=== PATIENT | female | born 1960 | race Caucasian/White ===

== ENCOUNTER 2018-09-04 05:46 | Observation (INO) ==
[2018-09-04] MEDS ORDERED: Ketorolac Inj 30 MG/ML (IVP) Vial IV.PUSH ONE (06:08)
[2018-09-04 06:28] LABS: Baso # (Auto) 0.1 th/mm3 (0.0-0.2); Baso % (Auto) 1.3 % (0.0-2.0); Eos # (Auto) 0.6 th/mm3 (0.0-0.4); Eos % (Auto) 10.8 % (0.0-4.0); Hematocrit 43.7 % (35.0-46.0); Hemoglobin 14.7 gm/dL (11.6-15.3); Lymph % (Auto) 33.8 % (9.0-44.0); Mean Corpuscular HGB Conc 33.7 % (32.0-36.0); Mean Corpuscular Hemoglobin 31.9 pg (27.0-34.0); Mean Corpuscular Volume 94.5 fL (80.0-100.0); Mean Platelet Volume 9.7 fL (7.0-11.0); Mono # (Auto) 0.4 th/mm3 (0.0-0.9); Mono % (Auto) 6.2 % (0.0-8.0); Neut # (Auto) 2.8 th/mm3 (1.8-7.7); Neut % (Auto) 47.9 % (16.0-70.0); Platelet Count 196 th/mm3 (150-450); Red Blood Count 4.62 mil/mm3 (4.00-5.30); Red Cell Distribution Width 13.2 % (11.6-17.2); White Blood Count 5.9 th/mm3 (4.0-11.0)
--- NOTE | 2018-09-04 06:44 | XR ---
EXAM DATE: 09/04/2018 6:27 AM EST AGE/SEX: 57 years / Female INDICATIONS: Chest pain. CLINICAL DATA: This is the patient's initial encounter. Patient reports that signs and symptoms have been present for 1 day and indicates a pain score of 7/10. MEDICAL/SURGICAL HISTORY: Asthma. None. COMPARISON: None. FINDINGS: A single AP view of the chest demonstrates the lungs to be symmetrically aerated without evidence of mass, infiltrate or effusion. The cardiomediastinal contours are unremarkable. Osseous structures a re intact. CONCLUSION: The lungs are clear. Electronically signed by: Lj Meyers MD Board Certified Radiologist 09/04/2018 6:43 AM EST
[2018-09-04 06:48] LABS: Alkaline Phosphatase 106 U/L (45-117); Total Protein 7.7 g/dL (6.4-8.2)
[2018-09-04 06:56] LABS: Alanine Aminotransferase 46 U/L (10-53); Albumin 4.1 g/dL (3.4-5.0); Anion Gap 7 meq/L (5-15); Aspartate Aminotransferase 32 U/L (15-37); Blood Urea Nitrogen 12 mg/dL (7-18); Calcium 8.7 mg/dL (8.5-10.1); Carbon Dioxide 26.5 meq/L (21.0-32.0); Chloride 106 meq/L (98-107); Glomerular Filtration Rate 66 mL/min (>89); Glucose,Random 166 mg/dL (74-106); Sodium 139 meq/L (136-145)
[2018-09-04 06:57] LABS: Potassium 4.1 meq/L (3.5-5.1)
--- NOTE | 2018-09-04 06:58 | ED ---
HPI General Chief Complaint: Chest Pain Stated Complaint: Chest Pain Time Seen by Provider: 09/04/18 05:57 Source: patient Mode of arrival: ambulatory Limitations: no limitations History of Present Illness HPI narrative: 57-year-old female came to the emergency room with history of chest pain, shortness of breath for past 24 hours. Patient says she has not been feeling good and her chest pain and shortness of breath seems to worsen on standing or exertion. Patient has history of asthma but she says that this does not feel like her usual asthma exacerbation. Pain is substernal with slight radiation to both sides. Last night she vomited twice. The pain currently is 6 out of 10. It feels like sharp pain under her left breast currently. Vital signs were stable. Patient took 325 mg of aspirin last night. Her son has factor V Leyden deficiency. Patient herself has never had a coronary artery disease history, PE or DVT. However she has not had any stress test or any coronary artery disease history workup. She has been lightheaded. Related Data Home Medications Medication Instructions Recorded Confirmed albuterol sulfate 2 puff INHALATION Q4-6H PRN 09/04/18 09/04/18 cyanocobalamin (vitamin B-12) See Label Instructions .ROUTE 09/04/18 09/04/18 .COMPLEX fluticasone [Flonase Allergy 2 spray INTRANASAL DAILY 09/04/18 09/04/18 Relief] fluticasone-salmeterol [Advair 1 inh INHALATION BID 09/04/18 09/04/18 Diskus] Allergies Allergy/AdvReac Type Severity Reaction Status Date / Time codeine Allergy Itching Verified 09/04/18 05:47 Review of Systems ROS: all other systems reviewed are negative FORMERLY [facility], [facility] Medical History Medical History Asthma (Acute) Diverticulitis (Acute) GERD (gastroesophageal reflux disease) (Acute) Nasal polyps (Acute) Surgical History Surgical History H/O: section (Acute) History of hernia surgery (Acute) History of sinus surgery (Acute) Social History Social History Substance History: No History of Abuse Second Hand Smoke Exposure: No Smoking Status: Never smoker How Often Do You Have a Drink Containing Alcohol: 2 to 3 times a week Recent Travel in [facility] within the Last 8 Weeks: No Recent Out of Country Travel within the Last 8 Weeks: No Immunization History Tetanus Immunization: Unsure Exam Narrative Exam Narrative: GENERAL: Awake, alert, anxious, moderate to SKIN: Focused skin assessment warm/dry. HEAD: Atraumatic. Normocephalic. EYES: Pupils equal and round. No scleral icterus. No injection or drainage. ENT: No nasal bleeding or discharge. Mucous membranes pink and moist. NECK: Trachea midline. No JVD. CARDIOVASCULAR: Regular rate and rhythm. No murmur appreciated. RESPIRATORY: No accessory muscle use. Clear to auscultation. Breath sounds equal bilaterally. GASTROINTESTINAL: Abdomen soft, non-tender, nondistended. Hepatic and splenic margins not palpable. MUSCULOSKELETAL: No obvious deformities. No clubbing. No cyanosis. No edema. NEUROLOGICAL: Awake and alert. No obvious cranial nerve deficits. Motor grossly within normal limits. Normal speech. PSYCHIATRIC: Appropriate mood and affect; insight and judgment normal. Course Initial Documented Vital Signs Temperature 97.3 F L 09/04/18 05:47 Pulse Rate 83 09/04/18 05:47 Respiratory Rate 18 09/04/18 05:47 Blood Pressure 164/92 H 09/04/18 05:47 Pulse Oximetry 96 09/04/18 05:47 Last Documented Vital Signs Temperature 97.9 F 09/04/18 12:00 Pulse Rate 90 09/04/18 16:00 Respiratory Rate 16 09/04/18 16:00 Blood Pressure 134/86 09/04/18 16:00 Pulse Oximetry 94 L 09/04/18 16:00 Sign Out Sign Out Data: Patient Sign Out occurred on 09/04/18 at 07:38. Patient's care was discussed, and care was transferred from Kavon Cueto to Ruben Angel MD. Sign Out Comment: Follow-up on the CTA pulmonary. If CTA is negative patient should be admitted to the chest pain center to be ruled out for ACS. Last updated by Kavon Cueto MD at 09/04/18 07:19 Post-Handoff Eval: Case is checked out to me by Dr. Rick at 7 AM. I have reassessed the patient. She is currently chest pain-free. Her workup here is negative including cardiac enzymes. CTA of the chest is negative for PE. Her pain is atypical and Dr. Rick has recommended observation in the chest pain center after PE is ruled out. I discussed this with the patient and she is agreeable. It sounds like the patient may need an outpatient GI workup after ruling out cardiac cause of her chest discomfort. She does have a lot of GI symptomatology. Medical Decision Making MDM Narrative Medical decision making narrative: 6:56 AM patient was given IV morphine for pain. Awaiting for blood test results and CTA pulmonary. If all the workup is negative then patient should be admitted to the chest pain center at the least. Case will be signed over to the oncoming ER physician peer Medical Screen Exam Complete: Yes Emergency Medical Condition: Yes Lab Data Result diagrams: 09/04/18 06:00 09/04/18 06:00 Lab Results 09/04/18 09/04/18 09/04/18 Range/Units 06:00 06:00 11:10 WBC 5.9 (4.0-11.0) th/mm3 RBC 4.62 (4.00-5.30) mil/mm3 Hgb 14.7 (11.6-15.3) gm/dL Hct 43.7 (35.0-46.0) % MCV 94.5 (80.0-100.0) fL MCH 31.9 (27.0-34.0) pg MCHC 33.7 (32.0-36.0) % RDW 13.2 (11.6-17.2) % Plt Count 196 (150-450) th/mm3 MPV 9.7 (7.0-11.0) fL Neut % (Auto) 47.9 (16.0-70.0) % Lymph % (Auto) 33.8 (9.0-44.0) % [place] % (Auto) 6.2 (0.0-8.0) % Eos % (Auto) 10.8 H (0.0-4.0) % Baso % (Auto) 1.3 (0.0-2.0) % Neut # (Auto) 2.8 (1.8-7.7) th/mm3 Lymph # (Auto) 2.0 (1.0-4.8) th/mm3 [place] # (Auto) 0.4 (0.0-0.9) th/mm3 Eos # (Auto) 0.6 H (0.0-0.4) th/mm3 Baso # (Auto) 0.1 (0.0-0.2) th/mm3 WBC Differential . Differential Comment Auto diff final Sodium 139 (136-145) meq/L Potassium 4.1 (3.5-5.1) meq/L Chloride 106 (98-107) meq/L Carbon Dioxide 26.5 (21.0-32.0) meq/L Anion Gap 7 (5-15) meq/L BUN 12 (7-18) mg/dL Creatinine 0.88 (0.50-1.00) mg/dL Estimated GFR 66 L (>89) mL/min Random Glucose 166 H (74-106) mg/dL Calcium 8.7 (8.5-10.1) mg/dL Total Bilirubin 1.0 (0.2-1.0) mg/dL AST 32 (15-37) U/L ALT 46 (10-53) U/L Alkaline Phosphatase 106 (45-117) U/L Total Creatine Kinase 178 (26-192) U/L Troponin I Less than 0.02 L Less than 0.02 L (0.02-0.05) ng/mL Total Protein 7.7 (6.4-8.2) g/dL Albumin 4.1 (3.4-5.0) g/dL 09/04/18 Range/Units 13:20 WBC (4.0-11.0) th/mm3 RBC (4.00-5.30) mil/mm3 Hgb (11.6-15.3) gm/dL Hct (35.0-46.0) % MCV (80.0-100.0) fL MCH (27.0-34.0) pg MCHC (32.0-36.0) % RDW (11.6-17.2) % Plt Count (150-450) th/mm3 MPV (7.0-11.0) fL Neut % (Auto) (16.0-70.0) % Lymph % (Auto) (9.0-44.0) % [place] % (Auto) (0.0-8.0) % Eos % (Auto) (0.0-4.0) % Baso % (Auto) (0.0-2.0) % Neut # (Auto) (1.8-7.7) th/mm3 Lymph # (Auto) (1.0-4.8) th/mm3 [place] # (Auto) (0.0-0.9) th/mm3 Eos # (Auto) (0.0-0.4) th/mm3 Baso # (Auto) (0.0-0.2) th/mm3 WBC Differential Differential Comment Sodium (136-145) meq/L Potassium (3.5-5.1) meq/L Chloride (98-107) meq/L Carbon Dioxide (21.0-32.0) meq/L Anion Gap (5-15) meq/L BUN (7-18) mg/dL Creatinine (0.50-1.00) mg/dL Estimated GFR (>89) mL/min Random Glucose (74-106) mg/dL Calcium (8.5-10.1) mg/dL Total Bilirubin (0.2-1.0) mg/dL AST (15-37) U/L ALT (10-53) U/L Alkaline Phosphatase (45-117) U/L Total Creatine Kinase 181 (26-192) U/L Troponin I Less than 0.02 L (0.02-0.05) ng/mL Total Protein (6.4-8.2) g/dL Albumin (3.4-5.0) g/dL Imaging Data Radiologist's impression: Chest CTA 09/04/18 06:02 CONCLUSION: 1. Negative for central pulmonary emboli 2. Minimal LAD calcifications in the proximal LAD 3. Moderate fatty replacement in the liver Chest X-Ray 09/04/18 06:02 CONCLUSION: The lungs are clear. ECG Data Attestation: I personally reviewed and interpreted this ECG as follows: Interpretation: Twelve-lead EKG was reviewed by me. Normal sinus rhythm, left axis deviation, nonspecific ST-T wave changes. Heart rate of 79 bpm. Discharge Plan Discharge Disposition Patient Disposition: ED Admit(ED Internal Use Only) Discharge Condition Condition: Stable Discharge Order Discharge Orders: Discharge Order (Routine); Ordered 09/04/18 Ordered By: Bouchra Layton ED Use Only Admit Order (Routine); Ordered 09/04/18 Ordered By: Ruben Angel Discharge Details Anticipated Discharge Date: 09/04/18 Diagnosis: Atypical chest pain Physicians Team ED Provider: Ruben Angel Primary Care Provider: UNKNOWN, Attending Provider: Marco Antonio Love Status ED Status: Left Department Discharge Information Discharge Date/Time: 09/04/18 12:29
--- NOTE | 2018-09-04 08:58 | CT ---
EXAM DATE: 09/04/2018 7:59 AM EST AGE/SEX: 57 years / Female INDICATIONS: Chest pain for 2 nights. CLINICAL DATA: This is the patient's initial encounter. Patient reports that signs and symptoms have been present for 2 days and indicates a pain score of 5/10. MEDICAL/SURGICAL HISTORY: Asthma. Diverticulitis. None. RADIATION DOSE: 22.73 CTDI (mGy) COMPARISON: No prior exams available for comparison. TECHNIQUE: Volumetric scanning was performed using a multi-row detector CT scanner during bolus infu josue of 75 ml Omnipaque 350 (iohexol) nonionic water-soluble contrast as a single exam dose. The pablo a was post processed with a variety of visualization algorithms including full volume maximum intensi ty projection and sliding thin slab reformation. Using automated exposure control and adjustment of t he mA and/or kV according to patient size, radiation dose was kept as low as reasonably achievable to obtain optimal diagnostic quality images. DICOM format image data is available electronically for r eview and comparison. FINDINGS: Pulmonary Arteries: No filling defects are seen in the pulmonary arteries out to the subsegmental ve ssels. The left and right pulmonary arteries are normal in diameter. Lung: No infiltrates seen. Effusion: None. Mediastinum: No evidence of mediastinal or hilar adenopathy. Other: The axilla is unremarkable. Moderate fatty replacement of the liver CONCLUSION: 1. Negative for central pulmonary emboli 2. Minimal LAD calcifications in the proximal LAD 3. Moderate fatty replacement in the liver Electronically signed by: Azam Mckeon MD Board Certified Radiologist 09/04/2018 8:57 AM EST
[2018-09-04] MEDS ORDERED: Acetaminophen 500 MG Tablet PO PRN (09:52)
[2018-09-04 11:52] LABS: Creatine Kinase 178 U/L (26-192)
[2018-09-04 12:40] VITALS: RESP 16; TEMP 97.9
--- NOTE | 2018-09-04 13:07 | P.HPCA ---
History of Present Illness Primary Care Physician: Primary care provider in [place] Chief Complaint: Chest pain History of Present Illness: 57 year old male with history of asthma and diverticulitis presents emergency room for further evaluation of multiple complaints including chest pain. Reports over the last month awakens nearly every night with the feeling of being smoothed. Awakens gasping for breath which quickly resolves after a few minutes. This cycle last most of evening and reports not getting any rest for weeks. Yesterday around 3 p.m. after returning home developed chest pain. Location substernal. Characterized as pressure, heaviness, "like a pulled muscle." Moderate in severity. No associated symptoms of dyspnea or diaphoresis. Endorses nausea and x2 nonbloody emesis. However states if nausea and vomiting related to chest pain due to the fact she frequently vomits 3x weekly, feeling "like food gets stuck and I choke then vomit." No precipitating or relieving factors of chest pain. No particular movement, position, or breathing makes pain better or worse. Duration lasted most of evening, could not get comfortable and was awake all evening. No recent illness , fever, cough, or wheezing. Remote cold 4 weeks ago treated with antibiotics. No history of EGD or hiatal hernia. Remote history of GERD, denies regular use of antacids required. Does not have local physicians in [place] currently. Endorses increased situational stress. Past cardiac testing None Social history No known hypertension, hyperlipidemia, diabetes, coronary artery disease. Lifelong non-smoker. Rare alcohol use socially. No recreational drug use. Lives with her boyfriend. Endorses an active lifestyle riding her bike 20 miles daily. Family history Noncontributory for early onset cardiovascular disease. - Diagnosis (1) Atypical chest pain (2) Asthma (3) GERD (gastroesophageal reflux disease) Review of Systems All other systems reviewed negative except as stated in [facility] - History History Provided By: Patient - Medical History Medical History: Medical History (Last Updated 09/04/18 @ 14:28 by AMBREEN Delgadillo) Asthma Diverticulitis GERD (gastroesophageal reflux disease) Nasal polyps - Surgical History Surgical History: Surgical History (Last Updated 09/04/18 @ 14:28 by AMBREEN Delgadillo) H/O: section History of hernia surgery History of sinus surgery - Social History I have reviewed the patient's Social History: Yes - Tobacco History Second Hand Smoke Exposure: No Smoking Status: Never smoker - Alcohol History How Often Do You Have a Drink Containing Alcohol: 2 to 3 times a week - Substance Use History Substance History: No History of Abuse - Travel History Recent Travel in the [place] Within the Last 8 Weeks: No Recent Travel Out of the Country Within the Last 8 Weeks: No - Immunization History Tetanus Immunization: Unsure Medications and Allergies Active Medications: Active Medications Acetaminophen (Tylenol) 500 mg PO Q4H PRN PRN Reason: HEADACHE Ondansetron HCl (Zofran Inj) 4 mg IV.PUSH Q6H PRN PRN Reason: NAUSEA Sodium Chloride (Ns Flush) 2 ml IV.FLUSH BID MURALI Sodium Chloride (Ns Flush) 2 ml IV.FLUSH UNSCH PRN PRN Reason: FLUSH AFTER USING IV ACCESS Allergies Allergy/AdvReac Type Severity Reaction Status Date / Time codeine Allergy Itching Verified 09/04/18 05:47 Home Medications Medication Instructions Recorded Confirmed Type albuterol sulfate 2 puff INHALATION Q4-6H PRN 09/04/18 09/04/18 History cyanocobalamin (vitamin B-12) See Label Instructions .ROUTE 09/04/18 09/04/18 History .COMPLEX fluticasone [Flonase Allergy 2 spray INTRANASAL DAILY 09/04/18 09/04/18 History Relief] fluticasone-salmeterol [Advair 1 inh INHALATION BID 09/04/18 09/04/18 History Diskus] Exam Vital signs: Vital Signs 09/04/18 05:47 09/04/18 06:13 09/04/18 07:20 Temperature 97.3 F L Pulse Rate 83 80 82 Respiratory Rate 18 20 17 Blood Pressure 164/92 H 146/71 H 136/69 Pulse Oximetry 96 97 97 09/04/18 11:25 09/04/18 12:00 Temperature 97.9 F Pulse Rate 71 72 Respiratory Rate 17 16 Blood Pressure 151/72 H 155/77 H Pulse Oximetry 95 Intake & Output 09/03/18 09/04/18 09/04/18 18:59 06:59 18:59 Weight 81.647 kg Narrative: GENERAL: Alert WN, WD, NAD, pleasant, female HEAD: NC, AT EYES: Sclera clear, conjunctiva without injection CV: RRR, without murmur, rub, gallop. Generalized chest discomfort reproduced with light palpation. RESP: Clear lungs throughout bilateral, no crackles, wheeze, rhonchi, symmetrical chest rise, nonlabored, able to speak in full sentences ABD: Soft, NT, ND, no masses, positive bowel tones EXT: Pulses +2x4, no dependent edema MS: Normal tone x4 extremities, nontender, no obvious deformities, full range of motion NEURO: Motor strength 5/5 PSYCH: A+O x3, pleasant affect, appropriate speech, mood, insight and judgment SKIN: Normal turgor, normal texture, no lesions, no rashes, tattoo Results 09/04/18 06:00 09/04/18 06:00 Cardiac Enzymes 09/04/18 09/04/18 Range/Units 06:00 11:10 AST 32 (15-37) U/L Troponin I Less than 0.02 L Less than 0.02 L (0.02-0.05) ng/mL CBC 09/04/18 Range/Units 06:00 WBC 5.9 (4.0-11.0) th/mm3 RBC 4.62 (4.00-5.30) mil/mm3 Hgb 14.7 (11.6-15.3) gm/dL Hct 43.7 (35.0-46.0) % Plt Count 196 (150-450) th/mm3 Neut # (Auto) 2.8 (1.8-7.7) th/mm3 Lymph # (Auto) 2.0 (1.0-4.8) th/mm3 [place] # (Auto) 0.4 (0.0-0.9) th/mm3 Eos # (Auto) 0.6 H (0.0-0.4) th/mm3 Baso # (Auto) 0.1 (0.0-0.2) th/mm3 Comprehensive Metabolic Panel 09/04/18 Range/Units 06:00 Sodium 139 (136-145) meq/L Potassium 4.1 (3.5-5.1) meq/L Chloride 106 (98-107) meq/L Carbon Dioxide 26.5 (21.0-32.0) meq/L BUN 12 (7-18) mg/dL Creatinine 0.88 (0.50-1.00) mg/dL Calcium 8.7 (8.5-10.1) mg/dL AST 32 (15-37) U/L ALT 46 (10-53) U/L Alkaline Phosphatase 106 (45-117) U/L Total Protein 7.7 (6.4-8.2) g/dL Albumin 4.1 (3.4-5.0) g/dL Intake and Output 09/03/18 09/04/18 09/04/18 22:59 06:59 14:59 Other: Weight 81.647 kg - Imaging and Cardiology Imaging: Impressions Chest CTA 09/04/18 06:02 CONCLUSION: 1. Negative for central pulmonary emboli 2. Minimal LAD calcifications in the proximal LAD 3. Moderate fatty replacement in the liver Chest X-Ray 09/04/18 06:02 CONCLUSION: The lungs are clear. EKG interpretations - EKG EKG results cardiology: sinus rhythm, normal axis, normal QRS, normal ST/T Caprini VTE Risk Assessment Caprini VTE Risk Assessment: No/Low Risk (score <= 1) Caprini Risk Assessment Model: Point Value = 1 Point Value = 2 Point Value = 3 Point Value = 5 Age 41-60 Minor surgery BMI > 25 kg/m2 Swollen legs Varicose veins or History of unexplained or recurrent spontaneous Oral contraceptives or hormone replacement Sepsis (< 1 month) Serious lung disease, including pneumonia (< 1 month) Abnormal pulmonary function Acute myocardial infarction Congestive heart failure (< 1 month) History of inflammatory bowel disease Medical patient at bed rest Age 61-74 Arthroscopic surgery Major open surgery (> 45 min) Laparoscopic surgery (> 45 min) Malignancy Confined to bed (> 72 hours) Immobilizing plaster cast Central venous access Age >= 75 History of VTE Family history of VTE Factor V Leiden Prothrombin [id number] Lupus anticoagulant Anticardiolipin antibodies Elevated serum homocysteine Heparin-induced thrombocytopenia Other congenital or acquired thrombophilia Stroke (< 1 month) Elective arthroplasty Hip, pelvis, or leg fracture Acute spinal cord injury (< 1 month) Prophylaxis Regimen: Total Risk Factor Score Risk Level Prophylaxis Regimen 0-1 Low Early ambulation 2 Moderate Order ONE of the following: *Sequential Compression Device (SCD) *Heparin 5000 units SQ BID 3-4 Higher Order ONE of the following medications: *Heparin 5000 units SQ TID *Enoxaparin/Lovenox 40 mg SQ daily (WT < 150 kg, CrCl > 30 mL/min) *Enoxaparin/Lovenox 30 mg SQ daily (WT < 150 kg, CrCl > 10-29 mL/min) *Enoxaparin/Lovenox 30 mg SQ BID (WT < 150 kg, CrCl > 30 mL/min) AND/OR *Sequential Compression Device (SCD) 5 or more Highest Order ONE of the following medications: *Heparin 5000 units SQ TID (Preferred with Epidurals) *Enoxaparin/Lovenox 40 mg SQ daily (WT < 150 kg, CrCl > 30 mL/min) *Enoxaparin/Lovenox 30 mg SQ daily (WT < 150 kg, CrCl > 10-29 mL/min) *Enoxaparin/Lovenox 30 mg SQ BID (WT < 150 kg, CrCl > 30 mL/min) AND *Sequential Compression Device (SCD) Assessment and Plan - Assessment (1) Atypical chest pain Code(s): R07.89 - Other chest pain Status: Acute Plan: Admitted chest pain center. Rule out ACS with standard chest pain center protocol. Will be seen and evaluated by Dr. Marco Antonio Love. Discussed possible exercise stress testing after being ruled out and evaluated by door paneler. Further disposition to follow. (2) Asthma Code(s): J45.909 - Unspecified asthma, uncomplicated Status: Chronic Plan: Continue Flonase, Advair, and albuterol as needed. (3) GERD (gastroesophageal reflux disease) Code(s): K21.9 - Gastro-esophageal reflux disease without esophagitis Status: Chronic Plan: Cuts importance of establishing with a personal financial planner for follow up of reported frequent choking and vomiting during eating. Discussed currently symptoms likely related to GI and concerning of possible stricture. H&P: Quality - VTE Deep Vein Thrombosis/Pulmonary Embolism Present on Admission: No (2) Asthma Qualifiers: Asthma severity: unspecified severity Asthma persistence: intermittent Asthma complication type: unspecified Qualified Code(s): J45.20 - Mild intermittent asthma, uncomplicated (3) GERD (gastroesophageal reflux disease) Qualifiers: Esophagitis presence: esophagitis presence not specified Qualified Code(s): K21.9 - Gastro-esophageal reflux disease without esophagitis
[2018-09-04 14:23] LABS: Creatine Kinase 181 U/L (26-192)
--- NOTE | 2018-09-04 15:56 | ECG ---
Date Performed: 09/04/2018 Time Performed: 05:56:13 PTAGE: 57 years EKG: Sinus rhythm NORMAL ECG NO PREVIOUS TRACING DOCTOR: Marco Antonio Love Interpretating Date/Time 09/04/2018 15:54:48
--- NOTE | 2018-09-04 15:59 | ECG ---
Date Performed: 09/04/2018 Time Performed: 11:22:59 PTAGE: 57 years EKG: Sinus rhythm MINIMAL VOLTAGE CRITERIA FOR LVH, CONSIDER NORMAL VARIANT BORDERLINE ECG PREVIOUS TRACING : 09/04/2018 05.56 Since previous tracing, no significant change noted DOCTOR: Marco Antonio Love Interpretating Date/Time 09/04/2018 15:57:13
[2018-09-04 17:08] VITALS: BP 134/86; PULSE 90; O2SAT 94
[2018-09-05] MEDS ORDERED: Budesonide-Formoterol 160/4.5 MCG 6 GM Inhaler INH SCH (09:00)
--- NOTE | 2018-09-05 10:45 | TR ---
Date Performed: 09/04/2018 Time Performed: 16:11:37 DOCTOR: Sunil Palmer DRUG LIST: CLINICAL HISTORY: REASON FOR TEST: Chest pain REASON FOR ENDING: OBSERVATION: CONCLUSION: Justin protocol completed. Stopped sec to exceeding target heart rate and inability t o read st segments safely. Good exercise tolerance likely could have walked longer. Maximum MN=350 Ma x HR Achieved=90.0% Maximum BO=937/84 Total Exercise Time=6:01. No reprod chest pain. No ectopy. No s t segment changes at peak. Normal bp response. Recovery quick and unremarkable. COMMENTS:
--- NOTE | 2018-09-06 00:45 | ECG ---
Date Performed: 09/04/2018 Time Performed: 13:11:49 PTAGE: 57 years EKG: Sinus rhythm NORMAL ECG PREVIOUS TRACING : 09/04/2018 11.22 Since the previous tracing, no significant change noted DOCTOR: Eusebio Velazquez Interpretating Date/Time 09/06/2018 00:43:26
== END 2018-09-04 19:18 | disposition home or self-care (01) ==
LOC: NEDA 05:46 → NEPC 05:46 → NEPGCP 12:09
PROVIDERS: ADMIT Internal Medicine Cardiovascular Disease; ATTEND Internal Medicine Cardiovascular Disease
DX: R94.31 Abnormal electrocardiogram [ECG] [EKG]; R42 Dizziness and giddiness; J45.20 Mild intermittent asthma, uncomplicated; Z88.5 Allergy status to narcotic agent; K57.92 Diverticulitis of intestine, part unspecified, without perforation or abscess without bleeding; K21.9 Gastro-esophageal reflux disease without esophagitis; R07.89 Other chest pain
CPT/HCPCS: 71010; 71045; 71275; 80053; 82550; 84484; 85025; 90774; 90784; 93005; 93017; 96374; 99285; C8952; G0378; J1885; Q9967